=== PATIENT | male | born 1975 | race Caucasian/White ===

== ENCOUNTER 2017-04-09 16:38 | Emergency (ER) | payer OTHER ==
[~2017-04-09] VITALS: Ht 177.8 cm; Wt 73.5 kg
[~2017-04-09 16:38] MED LIST: ASPI81EC PO; CLOP75 PO; DIVA500EC PO; DULO60 PO; Keflex500 MG PO; METO25ER PO; Permethrin60 GM TP
[2017-04-09] MEDS ORDERED: PENVK500 PO (19:11)
[2017-04-09] MEDS ORDERED: IBUP800 PO (19:11)
[2017-04-09] MEDS ORDERED: [UNRECOGNIZED DRUG - OTHER] TOP (19:11)
== END 2017-04-09 19:29 | disposition home or self-care (01) ==
LOC: ER 16:38
DX: K08.89 Other specified disorders of teeth and supporting structures (principal); F17.200 Nicotine dependence, unspecified, uncomplicated; Z79.899 Other long term (current) drug therapy; Z79.82 Long term (current) use of aspirin
CPT/HCPCS: 99283

== ENCOUNTER 2017-06-28 13:10 | Emergency (ER) | payer OTHER ==
[~2017-06-28] VITALS: Ht 177.8 cm; Wt 69.0 kg
[~2017-06-28 13:10] MED LIST changes: +IBUP800 PO; +PENVK500 PO; +[UNRECOGNIZED DRUG - OTHER] TOP
[2017-06-28] MEDS ORDERED: Bactrim Ds Tab1 EACH PO (15:41)
== END 2017-06-28 16:19 | disposition home or self-care (01) ==
LOC: ER 13:10
DX: L02.512 Cutaneous abscess of left hand (principal); F17.200 Nicotine dependence, unspecified, uncomplicated; Z79.82 Long term (current) use of aspirin; Z79.899 Other long term (current) drug therapy
CPT/HCPCS: 10060; 99283

== ENCOUNTER 2017-07-10 13:45 | Emergency (ER) | payer OTHER ==
[~2017-07-10] VITALS: Ht 177.8 cm; Wt 73.5 kg
[~2017-07-10 13:45] MED LIST changes: +Bactrim Ds Tab1 EACH PO
[2017-07-10] MEDS ORDERED: DULO60 PO (14:10)
[2017-07-10] MEDS ORDERED: Bactrim Ds Tab1 EACH PO (14:10)
== END 2017-07-10 14:19 | disposition home or self-care (01) ==
LOC: ER 13:45
DX: Z48.817 Encounter for surgical aftercare following surgery on the skin and subcutaneous tissue (principal); Z76.0 Encounter for issue of repeat prescription; Z79.82 Long term (current) use of aspirin; Z79.899 Other long term (current) drug therapy; F17.200 Nicotine dependence, unspecified, uncomplicated
CPT/HCPCS: 99283

== ENCOUNTER → 2017-07-18 | Outpatient (CLI) | payer OTHER ==
[2017-07-18 16:55] LABS: Bilirubin, Urine Neg (Neg); Blood, Urine 1+ (Neg); Glucose Qualitative, Urine Neg (Neg); Ketones, Urine Neg (Neg); Leukocyte Esterase, Urine 1+ (Neg); Nitrite, Urine Neg (Neg); Protein, Urine Neg (Neg); Urobilinogen, Urine 1+ (Normal)
[2017-07-18 17:04] LABS: Appearance, Urine Clear (Clear); Color, Urine Yellow (P-Yellow); Mucus Light (0-Heavy)
[2017-07-18 17:05] LABS: Bacteria Rare /hpf; Squamous Epithelial Cells Few /hpf (Few); White Blood Cells, Urine 0-2 /hpf (0-5)
== END | disposition home or self-care (01) ==
LOC: LAB SHORT 15:18 → LAB 15:18
PROVIDERS: Registered Nurse
DX: R31.9 Hematuria, unspecified (principal)
CPT/HCPCS: 81001; 87086

== ENCOUNTER 2017-09-14 14:50 | Emergency (ER) | payer OTHER ==
[~2017-09-14] VITALS: Ht 177.8 cm; Wt 73.5 kg
== END 2017-09-14 15:55 | disposition home or self-care (01) ==
LOC: ER 14:50
DX: L23.7 Allergic contact dermatitis due to plants, except food (principal); Z79.82 Long term (current) use of aspirin; Z79.899 Other long term (current) drug therapy; F17.200 Nicotine dependence, unspecified, uncomplicated
CPT/HCPCS: 96372; 99283; J3301; Q0163

== ENCOUNTER 2017-10-20 10:03 | Emergency (ER) | payer OTHER ==
[~2017-10-20] VITALS: Ht 177.8 cm; Wt 73.4 kg
[2017-10-20] MEDS ORDERED: METCAR500 PO (10:33)
== END 2017-10-20 10:53 | disposition home or self-care (01) ==
LOC: ER 10:03
DX: M79.89 Other specified soft tissue disorders (principal); Z79.82 Long term (current) use of aspirin; Z79.899 Other long term (current) drug therapy; Z86.73 Personal history of transient ischemic attack (TIA), and cerebral infarction without residual deficits; F17.200 Nicotine dependence, unspecified, uncomplicated
CPT/HCPCS: 99282

== ENCOUNTER 2018-12-19 18:47 | Emergency (ER) | payer OTHER ==
[~2018-12-19] VITALS: Ht 170.2 cm; Wt 73.5 kg
[~2018-12-19 18:47] MED LIST changes: +METCAR500 PO; +Robaxin750 MG PO
[2018-12-19] MEDS ORDERED: ABAT250V (20:00)
[2018-12-19] MEDS ORDERED: GABA300 (20:00)
[2018-12-19] MEDS ORDERED: Monodox100 MG PO (20:40)
== END 2018-12-19 20:56 | disposition home or self-care (01) ==
LOC: ER 18:47
DX: L02.413 Cutaneous abscess of right upper limb (principal); L03.113 Cellulitis of right upper limb; Z86.73 Personal history of transient ischemic attack (TIA), and cerebral infarction without residual deficits; F17.200 Nicotine dependence, unspecified, uncomplicated; Z79.899 Other long term (current) drug therapy; Z79.82 Long term (current) use of aspirin
CPT/HCPCS: 10061; 87070; 87075; 87076; 87185; 87205; 99283-25

== ENCOUNTER 2019-08-29 09:23 | Emergency (ER) | payer OTHER ==
[~2019-08-29] VITALS: Ht 177.8 cm; Wt 82.5 kg
[~2019-08-29 09:23] MED LIST changes: +ABAT250V; +GABA300; +Monodox100 MG PO
[2019-08-29] MEDS ORDERED: TEMOVATE15 G1 TOP (09:45)
[2019-08-29] MEDS ORDERED: Prednisone20 MG PO (09:46)
== END 2019-08-29 09:49 | disposition home or self-care (01) ==
LOC: ER 09:23
DX: L23.7 Allergic contact dermatitis due to plants, except food (principal); M54.9 Dorsalgia, unspecified; G89.29 Other chronic pain; Z86.73 Personal history of transient ischemic attack (TIA), and cerebral infarction without residual deficits; Z79.82 Long term (current) use of aspirin; Z79.899 Other long term (current) drug therapy; F17.210 Nicotine dependence, cigarettes, uncomplicated
CPT/HCPCS: 99282

== ENCOUNTER 2019-11-30 10:12 | Emergency (ER) | payer OTHER ==
[~2019-11-30] VITALS: Ht 177.8 cm; Wt 73.5 kg
[~2019-11-30 10:12] MED LIST changes: +Prednisone20 MG PO; +TEMOVATE15 G1 TOP
== END 2019-11-30 13:07 | disposition home or self-care (01) ==
LOC: ER 10:12
DX: S09.90XA Unspecified injury of head, initial encounter (principal); S70.02XA Contusion of left hip, initial encounter; F17.210 Nicotine dependence, cigarettes, uncomplicated; Z79.82 Long term (current) use of aspirin; Z79.899 Other long term (current) drug therapy; Z86.73 Personal history of transient ischemic attack (TIA), and cerebral infarction without residual deficits; V89.2XXA Person injured in unspecified motor-vehicle accident, traffic, initial encounter; Y92.410 Unspecified street and highway as the place of occurrence of the external cause
CPT/HCPCS: 70450; 73502

== ENCOUNTER 2020-09-28 09:23 | Emergency (ER) | payer OTHER ==
[~2020-09-28] VITALS: Ht 177.8 cm; Wt 76.2 kg
[2020-09-28] MEDS ORDERED: Prednisone20 MG PO (09:49)
== END 2020-09-28 09:57 | disposition home or self-care (01) ==
LOC: ER 09:23
DX: L23.7 Allergic contact dermatitis due to plants, except food (principal); F17.210 Nicotine dependence, cigarettes, uncomplicated; Z79.82 Long term (current) use of aspirin; Z79.899 Other long term (current) drug therapy; Z86.73 Personal history of transient ischemic attack (TIA), and cerebral infarction without residual deficits
CPT/HCPCS: 99282

== ENCOUNTER 2020-10-28 13:19 | Emergency (ER) | payer OTHER ==
[~2020-10-28] VITALS: Ht 177.8 cm; Wt 74.8 kg
[2020-10-28] MEDS ORDERED: Prednisone20 MG PO (13:44)
[2020-10-28] MEDS ORDERED: Betamethasone D60 ML TOP (13:47)
== END 2020-10-28 13:46 | disposition home or self-care (01) ==
LOC: ER 13:19
DX: L25.9 Unspecified contact dermatitis, unspecified cause (principal); F17.210 Nicotine dependence, cigarettes, uncomplicated
CPT/HCPCS: 99282

== ENCOUNTER 2021-11-11 12:34 | Emergency (ER) | payer OTHER ==
[~2021-11-11] VITALS: Ht 177.8 cm; Wt 74.4 kg
[~2021-11-11 12:34] MED LIST changes: +Betamethasone D60 ML TOP
== END 2021-11-11 14:05 | disposition home or self-care (01) ==
LOC: ER 12:34
DX: J06.9 Acute upper respiratory infection, unspecified (principal); F17.210 Nicotine dependence, cigarettes, uncomplicated; Z20.822 Contact with and (suspected) exposure to COVID-19; Z79.52 Long term (current) use of systemic steroids; Z86.73 Personal history of transient ischemic attack (TIA), and cerebral infarction without residual deficits
CPT/HCPCS: 99282

== ENCOUNTER 2022-05-13 14:38 | Emergency (ER) | payer OTHER ==
[~2022-05-13] VITALS: Ht 172.7 cm; Wt 72.6 kg
[2022-05-13] MEDS ORDERED: Cymbalta20 MG PO (14:51)
[2022-05-13] MEDS ORDERED: ASPI81CH PO (14:51)
[2022-05-13] MEDS ORDERED: VALP250 PO (14:51)
[2022-05-13] MEDS ORDERED: Robaxin750 MG PO ×2 (14:51→15:07)
[2022-05-13] MEDS ORDERED: DULO60 PO (15:07)
[2022-05-13] MEDS ORDERED: Aspirin EC81 MG PO (15:07)
[2022-05-13] MEDS ORDERED: DIVA500EC PO (15:07)
== END 2022-05-13 15:10 | disposition home or self-care (01) ==
LOC: ER 14:38
DX: Z76.0 Encounter for issue of repeat prescription (principal); F17.210 Nicotine dependence, cigarettes, uncomplicated; Z79.82 Long term (current) use of aspirin; Z86.73 Personal history of transient ischemic attack (TIA), and cerebral infarction without residual deficits
CPT/HCPCS: 99281

== ENCOUNTER 2022-07-27 13:14 | Emergency (ER) | payer OTHER ==
[~2022-07-27] VITALS: Ht 177.8 cm; Wt 78.0 kg
[~2022-07-27 13:14] MED LIST changes: +ASPI81CH PO; +Aspirin EC81 MG PO; +Cymbalta20 MG PO; +VALP250 PO
[2022-07-27 13:25] VITALS: BP 129/86
[2022-07-27] MEDS ORDERED: DULO60 PO (13:47)
[2022-07-27] MEDS ORDERED: ASPI81CH PO (13:47)
== END 2022-07-27 13:52 | disposition home or self-care (01) ==
LOC: ER 13:14
DX: Z76.0 Encounter for issue of repeat prescription (principal); F17.210 Nicotine dependence, cigarettes, uncomplicated; Z79.899 Other long term (current) drug therapy; Z79.82 Long term (current) use of aspirin; Z86.73 Personal history of transient ischemic attack (TIA), and cerebral infarction without residual deficits
CPT/HCPCS: 99281

== ENCOUNTER 2023-01-19 08:53 | Day surgery (SDC) | payer OTHER ==
[2023-01-19] VITALS (13 sets, daily range): BP systolic 102–130; BP diastolic 72–100
[~2023-01-19] VITALS: Ht 176 cm; Wt 77.2 kg
[~2023-01-19 08:53] MED LIST changes: +CYCL10 PO; +PRAZ1 PO
--- NOTE | 2023-01-19 10:24 | NUR ---
Ambulatory in Day Surgery. History, Chart, Medications and Allergies reviewed before start of procedure. Patient confirms NPO status and agrees with scheduled surgery. Patient states colon prep results colon/clear. Pre-Op teaching done. Pt verbalizes understanding. Patient States Post-Procedure ride home has been arranged.
--- NOTE | 2023-01-19 11:04 | NUR ---
01/19/23 1104 Aggie Regalado HISTORY, CHART, MEDICATIONS AND ALLERGIES REVIEWED BEFORE START OF PROCEDURE. PATIENT CONFIRMS NPO STATUS AND AGREES WITH SCHEDULED PROCEDURE. 3-LEAD EKG REVIEWED WITH PHYSICIAN PRIOR TO START OF PROCEDURE. MONITOR INTACT WITH CONTINUOUS PULSE OXIMETRY,CAPNOGRAPHY, 3-LEAD EKG, INTERMITTENT BP. SUPPLEMENTAL O2 TO BE TITRATED THROUGHOUT PROCEDURE TO MAINTAIN O2 SATURATION ABOVE 90%. PATIENT DETERMINED TO BE ASA APPROPRIATE FOR PROPOFOL SEDATION PRIOR TO START OF PROCEDURE BY .
--- NOTE | 2023-01-19 12:10 | NUR ---
Patient up to Ambulate independently. Gait steady. Discharge instructions reviewed with patient. Patient verbalizes understanding. Copy given to patient to take home. Patient States Post-Procedure ride home has been arranged. Discharged via wheelchair to private car for ride home.
== END 2023-01-19 12:10 | disposition home or self-care (01) ==
LOC: ORSCMMR 08:53 → ORD 10:00 → ORSCMMR 10:00
PROVIDERS: Internal Medicine Gastroenterology
PROC: 0DJD8ZZ Inspection of Lower Intestinal Tract, Via Natural or Artificial Opening Endoscopic (ICD-10-PCS; principal; 2023-01-19 10:00)
DX: Z12.11 Encounter for screening for malignant neoplasm of colon (principal); Z86.010 Personal history of colon polyps; I72.0 Aneurysm of carotid artery; Z87.820 Personal history of traumatic brain injury; Z79.899 Other long term (current) drug therapy
CPT/HCPCS: J2250; J2704; J7120

== ENCOUNTER 2023-05-14 09:20 | Emergency (ER) | payer OTHER ==
[~2023-05-14] VITALS: Ht 177.8 cm; Wt 78.0 kg
[2023-05-14 10:28] VITALS: BP 127/96
[2023-05-14] MEDS ORDERED: HYDR1TAB94 PO (10:31)
[2023-05-14] MEDS ORDERED: Amoxicillin500 MG PO (10:31)
== END 2023-05-14 10:36 | disposition home or self-care (01) ==
LOC: ER 09:20
DX: K04.7 Periapical abscess without sinus (principal); F32.A Depression, unspecified; G89.29 Other chronic pain; F17.210 Nicotine dependence, cigarettes, uncomplicated; Z86.73 Personal history of transient ischemic attack (TIA), and cerebral infarction without residual deficits; Z79.899 Other long term (current) drug therapy; Z79.82 Long term (current) use of aspirin
CPT/HCPCS: 99282

== ENCOUNTER → 2024-03-07 | Outpatient (CLI) | payer OTHER ==
[~2024-03-07] MED LIST changes: +Amoxicillin500 MG PO; +HYDR1TAB94 PO
[2024-03-11 02:38] LABS: B PERTUSSIS/PARAPERTUSS SOURCE Not Provided; BORD PARAPERTUSSIS BY PCR Not Detected; BORDETELLA PERTUSSIS BY PCR Not Detected
== END | disposition home or self-care (01) ==
LOC: LAB SHORT 18:35 → LAB 18:35
PROVIDERS: Family Medicine
DX: R05.1 Acute cough (principal)
CPT/HCPCS: 87798

== ENCOUNTER 2024-12-26 09:15 | Emergency (ER) | payer OTHER ==
[~2024-12-26] VITALS: Ht 177.8 cm; Wt 74.4 kg
[2024-12-26] MEDS ORDERED: Ketorolac Tromethamine 15mg Vial IV ONE (09:35)
[2024-12-26 10:16] VITALS: BP 124/89
[2024-12-26 11:03] LABS: Influenza A, PCR NEGATIVE (NEGATIVE); Influenza B, PCR NEGATIVE (NEGATIVE); Resp Syncytial Virus, PCR NEGATIVE (NEGATIVE); SARS-Cov-2 (COVID-19) PCR, MMC NEGATIVE (NEGATIVE)
[2024-12-26] MEDS ORDERED: Ondansetron 4 MG SoluTab SL ONE (11:05)
== END 2024-12-26 12:23 | disposition home or self-care (01) ==
LOC: ER 09:15
PROVIDERS: Physician Assistant
DX: J06.9 Acute upper respiratory infection, unspecified (principal); F17.210 Nicotine dependence, cigarettes, uncomplicated; Z86.73 Personal history of transient ischemic attack (TIA), and cerebral infarction without residual deficits; Z79.82 Long term (current) use of aspirin; Z79.899 Other long term (current) drug therapy
CPT/HCPCS: 71046; 87637; 96372; 99283-25; A9270; J1885